=== PATIENT | female | born 1935 | race Hispanic/Latino ===

== ENCOUNTER → 2017-08-03 | Outpatient (CLI) | payer OTHER ==
[~2017-08-03] MED LIST: ATOR10 PO; CHOL200074 PO; CYAN50008 INJ; GABA-529 PO; INSU100V12 SQ; ISOS30TA11 PO; LINA145C PO; POLY17PO3 PO; POLY1GRA MC; RALO60TA PO; RALO60TA13 PO; TRAM-355 PO
== END | disposition home or self-care (01) ==
LOC: OIH 14:58
PROVIDERS: ATTEND Internal Medicine
DX: M16.12 Unilateral primary osteoarthritis, left hip (principal)
CPT/HCPCS: 73502

== ENCOUNTER 2018-02-01 14:56 | Observation (INO) | payer OTHER, MEDICARE ==
[~2018-02-01] VITALS: Ht 144.8 cm; Wt 38.1 kg
[~2018-02-01 14:56] MED LIST changes: +POLY17PO29 PO; -POLY17PO3 PO
[2018-02-01 15:42] LABS: BASOPHILS % (AUTO) 0.6 % (0.0-5.0); EOSINOPHILS % (AUTO) 0.1 % (0.0-8.0); HEMATOCRIT 32.5 % (36-48); LYMPHOCYTES % (AUTO) 6.9 % (21.0-51.0); MEAN CORPUSCULAR HEMOGLOBIN 31.3 pg (27.0-33.0); MEAN CORPUSCULAR HGB CONC 33.5 g/dL (32.0-36.0); MEAN CORPUSCULAR VOLUME 93.5 fL (79-99); MONOCYTES % (AUTO) 2.4 % (3.0-13.0); PLATELET COUNT (AUTO) 227 K/uL (130-400); RED BLOOD CELL COUNT(AUTO) 3.48 MIL/uL (4.00-5.50); RED CELL DISTRIBUTION WIDTH 13.5 % (11.0-15.5); WHITE BLOOD COUNT (AUTO) 6.7 K/uL (4.8-10.8)
[2018-02-01 15:48] LABS: CREATININE 0.8 mg/dL (0.5-1.5); POTASSIUM 3.8 mmol/L (3.5-5.1)
[2018-02-01 15:52] LABS: ALBUMIN 3.7 g/dL (3.5-5.0); BILIRUBIN,TOTAL 0.4 mg/dL (0.2-1.0); TOTAL PROTEIN, SERUM 7.2 g/dL (6.0-8.3)
[2018-02-01] MEDS: 1/2 NORMAL SALINE 1,000 ML IV SCH (16:00)
[2018-02-01] MEDS ORDERED: ONDANSETRON HCL 4 MG/2 ML VIAL ONE ×2 (16:02→16:31)
[2018-02-01] MEDS ORDERED: SODIUM CHLORIDE 0.9% 1000ML 1,000 ML IV ONE (16:03)
[2018-02-01] MEDS ORDERED: HYDROMORPHONE 1 MG/1 ML AMP ONE (16:03)
[2018-02-01] MEDS ORDERED: GLUCAGON 1MG KIT 1 MG ML IM PRN (16:15)
[2018-02-01] MEDS ORDERED: POTASSIUM CHLORIDE 20 MEQ ERTAB PO PRN (16:15)
[2018-02-01] MEDS ORDERED: DEXTROSE 50%-WATER 50 ML DISP.SYRIN IV PRN (16:15)
[2018-02-01] MEDS ORDERED: POTASSIUM CHLORIDE 10% ELIXIR 20 MEQ/15 ML UDCUP PO PRN (16:15)
[2018-02-01] MEDS ORDERED: HYDROMORPHONE 1 MG/1 ML AMP IVP PRN (16:15)
[2018-02-01] MEDS ORDERED: ONDANSETRON HCL 4 MG/2 ML VIAL IVP PRN (16:15)
[2018-02-01] MEDS: INSULIN R PO SSI SQ SCH ×2 (16:30→20:19)
[2018-02-01 17:07] VITALS: BP 184/77
[2018-02-01 19:00] VITALS: BP 147/56
[2018-02-01 23:38] VITALS: BP 128/50
[2018-02-02 03:24] VITALS: BP 155/61
[2018-02-02 04:58] LABS: HEMATOCRIT 27.3 % (36-48); MEAN CORPUSCULAR HEMOGLOBIN 30.8 pg (27.0-33.0); MEAN CORPUSCULAR HGB CONC 33.5 g/dL (32.0-36.0); MEAN CORPUSCULAR VOLUME 92.1 fL (79-99); NUCLEATED RED BLOOD CELLS 0.1 % (0.0-0.19); PLATELET COUNT (AUTO) 181 K/uL (130-400); RED BLOOD CELL COUNT(AUTO) 2.97 MIL/uL (4.00-5.50); RED CELL DISTRIBUTION WIDTH 13.2 % (11.0-15.5); WHITE BLOOD COUNT (AUTO) 7.4 K/uL (4.8-10.8)
[2018-02-02 05:15] LABS: ALBUMIN 2.9 g/dL (3.5-5.0); BILIRUBIN,TOTAL 0.4 mg/dL (0.2-1.0); CREATININE 0.8 mg/dL (0.5-1.5); TOTAL PROTEIN, SERUM 5.7 g/dL (6.0-8.3)
[2018-02-02] MEDS: 1/2 NORMAL SALINE 1,000 ML IV SCH ×2 (05:27→20:22)
[2018-02-02] MEDS: POTASSIUM CHLORIDE 20MEQ/100ML 100 ML IV PRN ×2 (05:43→09:45)
[2018-02-02] MEDS: LIDOCAINE HCL-MPF 1% 2ML VIAL IJ PRN ×2 (05:43→09:45)
[2018-02-02] MEDS: INSULIN R PO SSI SQ SCH ×4 (05:56→21:00)
[2018-02-02 07:26] LABS: AMYLASE 53 U/L (25-115); LIPASE 92 U/L (114-286)
[2018-02-02 08:00] VITALS: BP 138/63
[2018-02-02] MEDS ORDERED: ACETAMINOPHEN 325 MG TAB PO PRN ×2 (09:30)
[2018-02-02] MEDS: GABAPENTIN 100 MG CAPSULE PO SCH (09:46)
[2018-02-02] MEDS ORDERED: TRAMADOL /APAP 37.5MG/325MG TAB PO PRN (12:00)
[2018-02-02 12:07] VITALS: BP 137/60
[2018-02-02 16:53] VITALS: BP 143/61
[2018-02-02 20:13] VITALS: BP 132/57
[2018-02-02 23:38] VITALS: BP 132/58
[2018-02-03 04:00] VITALS: BP 127/49
[2018-02-03 05:39] LABS: ALBUMIN 2.6 g/dL (3.5-5.0); BILIRUBIN,TOTAL 0.2 mg/dL (0.2-1.0); CREATININE 0.8 mg/dL (0.5-1.5); POTASSIUM 3.6 mmol/L (3.5-5.1); TOTAL PROTEIN, SERUM 5.4 g/dL (6.0-8.3)
[2018-02-03] MEDS: 1/2 NORMAL SALINE 1,000 ML IV SCH ×2 (05:46→17:06)
[2018-02-03] MEDS: INSULIN R PO SSI SQ SCH ×4 (05:47→22:07)
[2018-02-03 07:24] LABS: BASOPHILS % (AUTO) 0.8 % (0.0-5.0); EOSINOPHILS % (AUTO) 1.6 % (0.0-8.0); HEMATOCRIT 26.7 % (36-48); LYMPHOCYTES % (AUTO) 21.7 % (21.0-51.0); MEAN CORPUSCULAR HEMOGLOBIN 31.6 pg (27.0-33.0); MONOCYTES % (AUTO) 6.7 % (3.0-13.0); NEUTROPHILS % (AUTO) 69.2 % (40.0-77.0); PLATELET COUNT (AUTO) 192 K/uL (130-400); RED BLOOD CELL COUNT(AUTO) 2.87 MIL/uL (4.00-5.50); RED CELL DISTRIBUTION WIDTH 13.1 % (11.0-15.5)
[2018-02-03 07:53] LABS: B-TYPE NATRIURETIC PEPTIDE 218 pg/mL (0-100)
[2018-02-03 08:00] VITALS: BP 145/63
[2018-02-03] MEDS: GABAPENTIN 100 MG CAPSULE PO SCH (08:39)
[2018-02-03] MEDS ORDERED: NON-FORMULARY MEDICATION 1 EACH (Isosorbide Dinitrate 30 MG) PO SCH (09:00)
[2018-02-03] MEDS ORDERED: PANTOPRAZOLE SODIUM 40 MG TABLET.DR PO SCH (10:15)
[2018-02-03 12:00] VITALS: BP 140/72
[2018-02-03 16:00] VITALS: BP 137/58
[2018-02-03 19:00] VITALS: BP 147/57
[2018-02-03] MEDS ORDERED: ZOLPIDEM TARTRATE 5 MG TAB PO SCH (21:00)
[2018-02-04] VITALS: BP 134/53
[2018-02-04 04:00] VITALS: BP 121/42
[2018-02-04] MEDS: 1/2 NORMAL SALINE 1,000 ML IV SCH (05:31)
[2018-02-04] MEDS: INSULIN R PO SSI SQ SCH (06:31)
[2018-02-04 08:40] VITALS: BP 143/54
[2018-02-04] MEDS: GABAPENTIN 100 MG CAPSULE PO SCH (10:12)
== END 2018-02-04 10:25 | disposition home or self-care (01) ==
LOC: EDH 14:56 → EDHIP 14:57 → 3AH 17:04
PROVIDERS: ADMIT Internal Medicine; ATTEND Internal Medicine
DX: K31.84 Gastroparesis (principal); R11.2 Nausea with vomiting, unspecified; K85.90 Acute pancreatitis without necrosis or infection, unspecified; E11.43 Type 2 diabetes mellitus with diabetic autonomic (poly)neuropathy; K86.1 Other chronic pancreatitis; E87.6 Hypokalemia; K21.9 Gastro-esophageal reflux disease without esophagitis; M81.0 Age-related osteoporosis without current pathological fracture; M54.12 Radiculopathy, cervical region; M54.16 Radiculopathy, lumbar region; Z90.49 Acquired absence of other specified parts of digestive tract
CPT/HCPCS: 36415 ×3; 71046; 76700; 80053 ×3; 82150 ×2; 82948 ×12; 83690 ×3; 83880; 84484; 85025 ×2; 85027; 93005; 93306; 96361 ×4; 96365; 96366; 96372; 96375; 97116; 97161; 99284; A4510; G0378 ×67; G8978; G8979; G8980; G8981; G8982; G8983; J1170 ×2; J1815 ×3; J2405 ×2; J3480 ×2; J3490 ×2; J7030

== ENCOUNTER 2018-02-12 14:58 | Observation (INO) | payer OTHER, MEDICARE ==
[~2018-02-12] VITALS: Ht 139.7 cm; Wt 37.2 kg
[2018-02-12] MEDS ORDERED: 1/2 NORMAL SALINE 2,000 ML IV ONE (15:56)
[2018-02-12 16:10] LABS: BASOPHILS % (AUTO) 1.2 % (0.0-5.0); EOSINOPHILS % (AUTO) 0.8 % (0.0-8.0); HEMATOCRIT 28.5 % (36-48); MEAN CORPUSCULAR HEMOGLOBIN 31.3 pg (27.0-33.0); MEAN CORPUSCULAR VOLUME 92.2 fL (79-99); NUCLEATED RED BLOOD CELLS 0.1 % (0.0-0.19); PLATELET COUNT (AUTO) 223 K/uL (130-400); WHITE BLOOD COUNT (AUTO) 4.3 K/uL (4.8-10.8)
[2018-02-12] MEDS ORDERED: SODIUM CHLORIDE 0.9% 10 ML VIAL IVP PRN (16:15)
[2018-02-12 16:35] LABS: CREATININE 0.9 mg/dL (0.5-1.5); POTASSIUM 4.2 mmol/L (3.5-5.1)
[2018-02-12 16:40] LABS: ALBUMIN 3.2 g/dL (3.5-5.0); BILIRUBIN,TOTAL 0.1 mg/dL (0.2-1.0); TOTAL PROTEIN, SERUM 6.5 g/dL (6.0-8.3)
[2018-02-12] MEDS ORDERED: ACETAMINOPHEN 325 MG TAB ONE (16:59)
[2018-02-12 19:20] VITALS: BP 135/56
[2018-02-12] MEDS ORDERED: TRAMADOL /APAP 37.5MG/325MG TAB PO PRN (22:00)
[2018-02-12] MEDS ORDERED: ZOLPIDEM TARTRATE 5 MG TAB PO PRN (22:00)
[2018-02-12] MEDS: 1/2 NORMAL SALINE 1,000 ML IV SCH ×2 (22:55→23:51)
[2018-02-12] MEDS ORDERED: ATORVASTATIN CALCIUM 20 MG TABLET ONE (23:11)
[2018-02-12] MEDS ORDERED: GABAPENTIN 100 MG CAPSULE ONE (23:11)
[2018-02-13 00:08] VITALS: BP 138/51
[2018-02-13] MEDS ORDERED: CLONIDINE HCL 0.1 MG TABLET PO PRN (03:30)
[2018-02-13] MEDS ORDERED: ACETAMINOPHEN 325 MG TAB PO PRN (03:30)
[2018-02-13] MEDS ORDERED: GLUCAGON 1MG KIT 1 MG ML IM PRN (03:30)
[2018-02-13] MEDS ORDERED: NITROGLYCERIN 0.4 MG SL TAB SL PRN (03:30)
[2018-02-13] MEDS ORDERED: ONDANSETRON HCL MDV 20ML 2 MG/ML VIAL IVP PRN (03:30)
[2018-02-13] MEDS ORDERED: DIPHENHYDRAMINE HCL 25 MG CAPSULE PO PRN (03:30)
[2018-02-13] MEDS ORDERED: DEXTROSE 50%-WATER 50 ML DISP.SYRIN IV PRN (03:30)
[2018-02-13] MEDS ORDERED: ZOLPIDEM TARTRATE 5 MG TAB PO PRN (03:30)
[2018-02-13] MEDS ORDERED: GUAIFENESIN-DM 200/20 MG 10 ML PO PRN (03:45)
[2018-02-13 04:15] VITALS: BP 155/64
[2018-02-13 04:29] LABS: HEMATOCRIT 28.5 % (36-48); MEAN CORPUSCULAR HEMOGLOBIN 31.2 pg (27.0-33.0); MEAN CORPUSCULAR VOLUME 91.9 fL (79-99); PLATELET COUNT (AUTO) 250 K/uL (130-400); RED BLOOD CELL COUNT(AUTO) 3.11 MIL/uL (4.00-5.50); RED CELL DISTRIBUTION WIDTH 13.1 % (11.0-15.5); WHITE BLOOD COUNT (AUTO) 3.3 K/uL (4.8-10.8)
[2018-02-13 04:46] LABS: ALBUMIN 2.8 g/dL (3.5-5.0); BILIRUBIN,TOTAL 0.2 mg/dL (0.2-1.0); CREATININE 0.8 mg/dL (0.5-1.5); POTASSIUM 3.4 mmol/L (3.5-5.1); TOTAL PROTEIN, SERUM 5.7 g/dL (6.0-8.3)
[2018-02-13 08:00] VITALS: BP 134/56
[2018-02-13] MEDS ORDERED: POTASSIUM CHLORIDE 20 MEQ ERTAB PO SCH (08:15)
[2018-02-13] MEDS ORDERED: POTASSIUM CHLORIDE 20 MEQ ERTAB PO ONE (08:24)
[2018-02-13] MEDS ORDERED: ***HM***(Linaclotide (Linzess) 145 MCG) PO SCH (09:00)
[2018-02-13] MEDS ORDERED: INSULIN GLARGINE 100 UNITS/ML 10 ML VIAL SQ SCH (09:00)
[2018-02-13] MEDS ORDERED: ISOSORBIDE DINITRATE 10 MG TABLET PO SCH (09:00)
[2018-02-13] MEDS ORDERED: GABAPENTIN 100 MG CAPSULE PO SCH (09:00)
[2018-02-13] MEDS ORDERED: CHOLECALCIFEROL 2000 UNIT PO SCH (09:00)
[2018-02-13] MEDS ORDERED: RALOXIFENE HCL 60 MG TABLET PO SCH ×2 (09:00)
[2018-02-13] MEDS ORDERED: POLYETHYLENE GLYCOL 3350 17 GM POWD.PACK PO SCH (21:00)
[2018-02-13] MEDS ORDERED: ATORVASTATIN CALCIUM 10 MG TABLET PO SCH (21:00)
[2018-03-14] MEDS ORDERED: CYANOCOBALAMIN 5000 MCG INJ SCH (09:00)
== END 2018-02-13 12:10 | disposition home or self-care (01) ==
LOC: EDH 14:58 → EDHIP 15:20 → 4CH 18:57
PROVIDERS: ADMIT Internal Medicine; ATTEND Internal Medicine
DX: K52.9 Noninfective gastroenteritis and colitis, unspecified (principal); E86.0 Dehydration; K21.9 Gastro-esophageal reflux disease without esophagitis; K86.1 Other chronic pancreatitis; I10 Essential (primary) hypertension; E78.5 Hyperlipidemia, unspecified; M81.0 Age-related osteoporosis without current pathological fracture; M48.02 Spinal stenosis, cervical region; E11.9 Type 2 diabetes mellitus without complications; E46 Unspecified protein-calorie malnutrition; F41.9 Anxiety disorder, unspecified; F32.9 Major depressive disorder, single episode, unspecified
CPT/HCPCS: 36415 ×2; 80053 ×2; 82948 ×3; 83690 ×2; 85025; 85027; 96360; 96361; 99284; G0378 ×21

== ENCOUNTER → 2018-02-27 | Outpatient (CLI) | payer OTHER, MEDICARE ==
[~2018-02-27] MED LIST changes: +AMYL1CAP45 PO; +ATOR20TA65 PO; +BACL5TAB PO; +DICL75TA5 PO; +INSU300I SQ; +LEVO25TA PO; +MAGN400T25 PO; +METO10TA3 PO
--- NOTE | 2018-02-27 12:10 | NUR ---
MODIFIED BARIUM SWALLOW STUDY COMPLETE. NO ASPIRATION OBSERVED. RECOMMEND MECHANICAL SOFT DIET WITH THIN LIQUIDS. STRICT ADHERENCE TO SAFE SWALLOW PRECAUTIONS. PATIENT INFORMATION: PATIENT IS AN 83 YEAR OLD FEMALE REFERRED FOR A MODIFIED BARIUM SWALLOW STUDY BY DR. BRIAN TIRADO SECONDARY TO A DIAGNOSIS OF OROPHARYNGEAL DYSPHAGIA. PATIENT [place] [facility] [place]UGHTER. PATIENT REPORTS DIFFICULTY CHEWING, LOSS OF APPETITE, AND SENSATION OF FOOD BEING STUCK IN HER THROAT. PATIENT STATES SHE FEELS IF SHE IS GASPING FOR AIR SECONDARY TO SWALLOWING DIFFICULTY. PATIENT WITH PMH SIGNIFICANT FOR CERVICAL LAMINECTOMY IN 1993 AND COLECTOMY IN 2016. PATIENT CURRENTLY CONSUMES A MECHANICAL SOFT DIET WITH THIN LIQUIDS. DIET IS SUPPLEMENTED WITH GLUCERNA X1 TIME PER DAY. EVALUATION: PATIENT PRESENTS WITH MODERATE OROPHARYNGEAL DYSPHAGIA CHARACTERIZED BY DECREASED INTRAORAL PRESSURE, PREMATURE SPILLAGE INTO THE VALLECULAE, AND POOLING IN THE VALLECULAE LEADING TO SPILL OVER INTO THE PYRIFORM SINUSES. PATIENT WITH POOLING IN THE VALLECULAE REQUIRING CHIN TUCK AND MULTIPLE SWALLOWS (2+ SWALLOWS) PER BOLUS TO CLEAR VALLECULAR RESIDUE. PHARYNGEAL PHASE OF SWALLOW FUNCTION IMPROVED WITH USE OF CHIN TUCK. NO ASPIRATION/PENETRATION OBSERVED DURING EVALUATION. PATIENT WITH PROLONGED MASTICATION AND DECREASED INTRAORAL PRESSURE FOR BOLUS PROPULSION. RECOMMENDATIONS: 1. MECHANICAL SOFT DIET 2. THIN LIQUIDS EDUCATION: DIRECTOR OF CHILD WELFARE SERVICES REVIEWED DIAGNOSTIC IMPRESSIONS AND RECOMMENDATIONS WITH PATIENT AND DAUGHTER. DIRECTOR OF CHILD WELFARE SERVICES EDUCATED PATIENT AND DAUGHTER ON SAFE SWALLOW TECHNIQUES RECOMMENDED DURING MEALS INCLUDING: SITTING UPRIGHT, ALTERNATING SIPS AND BITES, SMALL SIPS/BITES, CHIN TUCK, EFFORTFUL SWALLOW, AND MULTIPLE SWALLOWS PER BOLUS. PATIENT VERBALLY AGREED WITH RECOMMENDATIONS. G-CODES: [id number] Addendum: 02/27/[address] [facility] Amended: Links added.
== END | disposition home or self-care (01) ==
LOC: RAH 10:25
PROVIDERS: ATTEND Internal Medicine Gastroenterology
DX: R13.12 Dysphagia, oropharyngeal phase (principal); R63.3 Feeding difficulties
CPT/HCPCS: G8996; G8997; G8998; 74230; 92611

== ENCOUNTER → 2018-03-15 | Outpatient (CLI) | payer OTHER, MEDICARE ==
[2018-03-15 09:24] LABS: CREATININE 0.7 mg/dL (0.5-1.5)
== END | disposition home or self-care (01) ==
LOC: LAB 08:43
PROVIDERS: ATTEND Internal Medicine
DX: K85.90 Acute pancreatitis without necrosis or infection, unspecified (principal)
CPT/HCPCS: 36415; 82565; 84520

== ENCOUNTER → 2018-03-20 | Outpatient (CLI) | payer OTHER, MEDICARE ==
[~2018-03-20] MED LIST changes: +GADODIAMIDE 5 MMOL/10 ML VIAL 5 MMOL/10 ML ML IV ONE
== END | disposition home or self-care (01) ==
LOC: RAH 08:49
PROVIDERS: ATTEND Internal Medicine
DX: K85.90 Acute pancreatitis without necrosis or infection, unspecified (principal); Z90.49 Acquired absence of other specified parts of digestive tract
CPT/HCPCS: 74183; A9579

== ENCOUNTER 2018-09-05 05:38 | Day surgery (SDC) | payer OTHER, MEDICARE ==
[~2018-09-05] VITALS: Ht 142.2 cm; Wt 38.6 kg
[2018-09-05] VITALS (7 sets, daily range): BP systolic 119–138; BP diastolic 43–58
[~2018-09-05 05:38] MED LIST changes: -ATOR10 PO; +CHOL100040 PO; -CHOL200074 PO; +CLON0.5T23 PO; +DICL100G31 TP; -DICL75TA5 PO; +DONE10TA36 PO; +GABA-531 PO; -GADODIAMIDE 5 MMOL/10 ML VIAL 5 MMOL/10 ML ML IV ONE; -INSU100V12 SQ; -ISOS30TA11 PO; +LACT10PA5 PO; -LINA145C PO; +MELO15TA12 PO; -METO10TA3 PO; +MONT10TA24 PO; +PANT40TA25 PO; -POLY17PO29 PO; -POLY1GRA MC; -RALO60TA PO; +metamucil
[2018-09-05] MEDS ORDERED: SODIUM CHLORIDE 0.9% 1000ML 1,000 ML IV ONE (05:48)
[2018-09-05] MEDS ORDERED: PROPOFOL 10 MG/ML 20ML VIAL IV ONE (07:06)
--- NOTE | 2018-09-05 07:38 | NUR ---
DC PT DC HOME VIA WC, NO DISTRESS NOTED. PT AWAKE AND ALERT, SEEMS DROWSY BUT ABLE TO FOLLOW COMMANDS, ACCOMPANIED BY DAUGHTER. VS STABLE ON DISCHARGE
== END 2018-09-05 07:38 | disposition home or self-care (01) ==
LOC: DAH 05:38 → ENDO 05:38
PROVIDERS: ATTEND Internal Medicine
DX: K44.9 Diaphragmatic hernia without obstruction or gangrene (principal); K22.8 Other specified diseases of esophagus; E11.9 Type 2 diabetes mellitus without complications; Z79.4 Long term (current) use of insulin; E78.5 Hyperlipidemia, unspecified; K21.9 Gastro-esophageal reflux disease without esophagitis; I10 Essential (primary) hypertension; Z98.890 Other specified postprocedural states; Z79.899 Other long term (current) drug therapy; Z90.49 Acquired absence of other specified parts of digestive tract; Z82.49 Family history of ischemic heart disease and other diseases of the circulatory system; Z83.3 Family history of diabetes mellitus
CPT/HCPCS: 43249; 82948 ×2; A4606; J2704; J7030